=== PATIENT | male | born 1955 | race Caucasian/White ===

== ENCOUNTER 2020-05-07 21:28 | Observation (INO) | payer MEDICARE ==
[~2020-05-07] VITALS: Ht 170.2 cm; Wt 109.1 kg
[2020-05-07 21:38] VITALS: Ht 170.2 cm; Wt 109.1 kg
[2020-05-07] MEDS ORDERED: FLOMAX0.4 MG PO (21:40)
[2020-05-07] MEDS ORDERED: LISINOPRIL-HCT1 EAC4 PO (21:40)
[2020-05-07] MEDS ORDERED: OMEPRAZOLE20 M1 PO (21:40)
[2020-05-07 22:18] LABS: BASOPHILS 0.4 % (0-2); EOSINOPHILS 0.9 % (0-7); HEMATOCRIT 42.7 % (42.0-54.0); HEMOGLOBIN 14.6 g/dL (13.5-17.5); IMMATURE GRANULOCYTES 0.2 % (0-5); LYMPHOCYTES 23.2 % (15-50); MCH 31.9 pg (26.0-34.0); MCHC 34.2 g/dL (31.0-37.0); MCV 93.2 fL (80.0-100.0); MEAN PLATELET VOLUME 9.6 fL (7.4-10.4); MONOCYTES 11.7 % (2-11); NEUTROPHILS 63.6 % (40-80); PLATELET COUNT 272 10x3/uL (130-400); RBC 4.58 10x6/uL (4.20-6.10); RDW 12.9 % (11.5-14.5); WBC 9.2 10x3/uL (4.8-10.8)
[2020-05-07 22:22] LABS: APTT 27.9 SECONDS (22.8-39.4); INR 0.92 (0.85-1.17); PROTIME 12.3 SECONDS (11.6-15.0)
[2020-05-07 22:27] LABS: CALC OSMOLALITY 280 mosm/kg (275-300); CARBON DIOXIDE 25.1 mmol/L (21.0-32.0); CHLORIDE - SERUM 103 mmol/L (98-107); CREATININE - SERUM 1.3 mg/dL (0.6-1.3); GLUCOSE 171 mg/dL (74-106); POTASSIUM - SERUM 3.3 mmol/L (3.5-5.1); SODIUM 137 mmol/L (136-145); UREA NITROGEN 22 mg/dL (7-18); eGFR NON AFRICAN AMERICAN 59 mL/min (90-120)
[2020-05-07 22:31] VITALS: BP 128/84
[2020-05-07 22:42] LABS: ALBUMIN 3.9 g/dL (3.4-5.0); ALKALINE PHOSPHATASE 73 U/L (30-120); ALT (SGPT) 57 U/L (10-68); BILIRUBIN - TOTAL 0.39 mg/dL (0.2-1.3); CKMB 0.5 U/L (0.0-3.6); CREATINE KINASE 85 UL (21-232); MAGNESIUM - SERUM 1.9 mg/dL (1.8-2.4); PROTEIN - SERUM 7.3 g/dL (6.4-8.2)
[2020-05-07 22:44] LABS: TROPONIN-I < 0.017 ng/mL (0.000-0.060)
--- NOTE | 2020-05-07 23:14 | NUR ---
PT GIVEN BLANKET, DENIES ANY FURTHER NEEDS AT THIS TIME. CALL LIGHT IN REACH. PT ON MONITOR.
[2020-05-08 00:31] VITALS: BP 112/76
--- NOTE | 2020-05-08 01:11 | NUR ---
PT GIVEN URINAL, DENIES FURTHER NEEDS. PT ON MONITOR. CALL LIGHT IN REACH.
[2020-05-08 03:00] VITALS: BP 100/73
--- NOTE | 2020-05-08 03:36 | NUR ---
PT'S REPEAT EKG DONE PER ORDER. PT DENIES ANY NEEDS. CALL LIGHT IN REACH. WILL CONTINUE TO MONITOR.
[2020-05-08 05:06] VITALS: BP 109/72
--- NOTE | 2020-05-08 05:08 | NUR ---
PT RESTING, RR EVEN AND UNLABORED, VSS, PT ON MONITOR. AT BEDSIDE, CALL LIGHT IN REACH.
[2020-05-08 07:06] LABS: CHOL - HDL RATIO 6.2 ratio (2.3-4.9); CHOLESTEROL, TOTAL 174 mg/dL (0-200); CKMB 0.6 U/L (0.0-3.6); CREATINE KINASE 66 UL (21-232); HDL CHOLESTEROL 28 mg/dL (32-96); LDL CHOLESTEROL 126 mg/dL (0-100); LDL-HDL RATIO 4.5 ratio (1.5-3.5); TRIGLYCERIDE 101 mg/dL (30-200); TROPONIN-I < 0.017 ng/mL (0.000-0.060)
--- NOTE | 2020-05-08 07:11 | NUR ---
DR. LORENZO HERE.
[2020-05-08 07:30] VITALS: BP 117/73
[2020-05-08 11:54] LABS: CKMB 0.6 U/L (0.0-3.6); CREATINE KINASE 68 UL (21-232); TROPONIN-I < 0.017 ng/mL (0.000-0.060)
[2020-05-08 12:00] VITALS: BP 120/73
[2020-05-08 16:00] VITALS: BP 116/79
== END 2020-05-08 12:55 | disposition home or self-care (01) ==
LOC: D.ER 21:28 → D.EDHOLD 05-08 00:09 → OBSVTIME 05-08 00:12 → D.EDHOLD 05-08 00:12
PROVIDERS: Family Medicine; ADMIT Family Medicine; ATTEND Family Medicine
DX: I20.0 Unstable angina (principal); R00.2 Palpitations; E87.6 Hypokalemia; E11.65 Type 2 diabetes mellitus with hyperglycemia; K21.9 Gastro-esophageal reflux disease without esophagitis; I10 Essential (primary) hypertension; R07.9 Chest pain, unspecified